=== PATIENT | female | born 1970 | race Caucasian/White ===

== ENCOUNTER 2018-05-18 23:21 | Emergency (ER) | payer BC ==
[~2018-05-18] VITALS: Ht 162.6 cm; Wt 57.2 kg
[~2018-05-18 23:21] MED LIST: COPAXONE20 MG/KIT SC; PRILOSEC40 MG PO
[2018-05-19 00:17] LABS: BASOPHIL (%) 0.4 % (0-1); EOSINOPHIL (%) 1.8 % (0-5); EOSINOPHIL COUNT 0.2 K/uL (0-0.3); HEMATOCRIT 40.7 % (36.0-46.0); HEMOGLOBIN 13.7 G/DL (11.9-15.5); IMMATURE GRANULOCYTE (%) 0.4 % (0.0-0.7); LYMPHOCYTE (%) 19.4 % (15-42); LYMPHOCYTE COUNT 1.6 K/uL (1.0-2.8); MCHC 33.7 G/DL (30.0-36.0); MCV 89.1 FL (83-99); MONOCYTE (%) 4.3 % (3-12); MONOCYTE COUNT 0.4 K/uL (0-0.8); NEUTROPHIL (%) 73.7 % (45-76); NEUTROPHIL COUNT 6.1 K/uL (1.8-6.4); PLATELET COUNT 193 K/uL (156-360); RED BLOOD COUNT 4.57 M/uL (3.80-5.20); WHITE BLOOD COUNT 8.3 K/uL (4.1-10.2)
[2018-05-19 00:36] LABS: ALBUMIN 4.3 g/dL (3.2-4.8); CHLORIDE 104 mEq/L (99-109); POTASSIUM 3.7 mEq/L (3.7-5.4); SODIUM 137 mEq/L (136-147)
[2018-05-19 00:38] LABS: GLUCOSE 88 mg/dL (70-99); TOTAL PROTEIN 7.1 g/dL (6.4-8.3)
[2018-05-19 00:40] LABS: TOTAL BILIRUBIN 0.8 mg/dL (0.0-1.0)
[2018-05-19 00:42] LABS: ALKALINE PHOSPHATASE 67 IU/L (3-129); CREATININE 0.8 mg/dL (0.6-1.3); GFR ESTIMATE (CALCULATED) > 59 mL/min/
[2018-05-19 00:43] LABS: AST (GOT) 17 IU/L (2-34); UREA NITROGEN (BUN) 21 mg/dL (9-23)
[2018-05-19 00:44] LABS: DIRECT BILIRUBIN 0.2 mg/dL (0.0-0.3)
[2018-05-19 00:45] LABS: ALT (GPT) 12 IU/L (3-49); CREATINE KINASE 86 IU/L (1-294); LIPASE 18 U/L (1.0-51.0)
[2018-05-19 01:03] LABS: APPEARANCE CLEAR ((CLEAR)); BILIRUBIN NEGATIVE; BLOOD SMALL; COLOR YELLOW ((YELLOW)); GLUCOSE (STRIP) NEGATIVE; KETONES 20; LEUKOCYTES NEGATIVE; NITRITE NEGATIVE; PROTEIN (STRIP) 30; SPECIFIC GRAVITY 1.021 (1.000-1.030)
[2018-05-19 01:10] LABS: BACTERIA NONE SEEN /HPF; EPITHELIAL CELLS RARE /HPF; MUCUS TRACE /LPF; UCUL ADDED? NO; WHITE BLOOD CELLS 0-5 /HPF (0-5)
[2018-05-19 02:44] VITALS: BP 115/72
== END 2018-05-19 02:44 | disposition home or self-care (01) ==
LOC: EME 23:21
PROVIDERS: Emergency Medicine
DX: R00.2 Palpitations (principal); R23.2 Flushing; R25.1 Tremor, unspecified; R10.9 Unspecified abdominal pain; R11.0 Nausea; T50.995A Adverse effect of other drugs, medicaments and biological substances, initial encounter; G35 Multiple sclerosis
CPT/HCPCS: 80048; 80076; 81003; 82550; 83690; 85025; 93005; 99281; 99284